=== PATIENT | female | born 1985 | race African-American/Black ===

== ENCOUNTER 2024-06-18 09:40 | Emergency (ER) | payer OTHER ==
[~2024-06-18] VITALS: Ht 157.5 cm; Wt 70.3 kg
[2024-06-18] MEDS ORDERED: LIDOCAINE HCL/MPF 1% 30 ML VIAL IJ ONE (11:13)
[2024-06-18] MEDS ORDERED: TDAP [DIPH/PERTUSSIS/TET] 0.5 ML VIAL IM ONE (12:17)
[2024-06-18] MEDS: TDAP [DIPH/PERTUSSIS/TET] 0.5 ML VIAL IM ONE (12:22)
[2024-06-18 12:44] VITALS: BP 138/88; TEMP 98.6; O2SAT 99
== END 2024-06-18 12:45 | disposition home or self-care (01) ==
LOC: ER 09:46
DX: S01.311A Laceration without foreign body of right ear, initial encounter (principal); S01.81XA Laceration without foreign body of other part of head, initial encounter; S06.0XAA Concussion with loss of consciousness status unknown, initial encounter; Y04.0XXA Assault by unarmed brawl or fight, initial encounter; Y93.89 Activity, other specified; Y92.89 Other specified places as the place of occurrence of the external cause; Y99.8 Other external cause status
CPT/HCPCS: 12002; 70450; 70486; 99284; A6403; J3490; 90715